=== PATIENT | male | born 1965 | race Caucasian/White ===

== ENCOUNTER 2024-10-25 10:17 | Outpatient (CLI) | payer BC, SELFPAY ==
--- NOTE | 2024-10-25 11:52 | P.ANES_ITS ---
Anesthesia Charges Start Date/Time Anesthesia Start Date: 10/25/24 Anesthesia Start Time: 11:25 Stop Date/Time Anesthesia Stop Date: 10/25/24 Anesthesia Stop Time: 11:49 Coding CPT Codes CPT Codes: PEDRO LWR INTST SCR COLSC - [id number] ([id number]) P2 - PATIENT W/MILD SYST DISEASE, QK - APPLIER 2-4 CNCRNT ANES PROC, QX - MANAGER MARKET SVC W/ MD MED DIRECTION
--- NOTE | 2024-10-25 11:52 | W.ANESCHARGE ---
Anesthesia Charges Start Date/Time Anesthesia Start Date: 10/25/24 Anesthesia Start Time: 11:25 Stop Date/Time Anesthesia Stop Date: 10/25/24 Anesthesia Stop Time: 11:49 Coding CPT Codes CPT Codes: PEDRO LWR INTST SCR COLSC - [id number] ([id number]) P2 - PATIENT W/MILD SYST DISEASE, QK - IT SPECIALIST 2-4 CNCRNT ANES PROC, QX - COOKING INSTRUCTOR SVC W/ MD MED DIRECTION
--- NOTE | 2024-10-25 12:20 | P.ANES_ITS ---
Anesthesia Charges Start Date/Time Anesthesia Start Date: 10/25/24 Anesthesia Start Time: 11:25 Stop Date/Time Anesthesia Stop Date: 10/25/24 Anesthesia Stop Time: 11:49 Coding CPT Codes CPT Codes: PEDRO LWR INTST SCR COLSC - [id number] ([id number]) P2 - PATIENT W/MILD SYST DISEASE, QK - LITHOGRAPHIC STRIPPER 2-4 CNCRNT ANES PROC, QX - CINEMA OPERATOR SVC W/ MD MED DIRECTION
--- NOTE | 2024-10-25 12:20 | W.ANESCHARGE ---
Anesthesia Charges Start Date/Time Anesthesia Start Date: 10/25/24 Anesthesia Start Time: 11:25 Stop Date/Time Anesthesia Stop Date: 10/25/24 Anesthesia Stop Time: 11:49 Coding CPT Codes CPT Codes: PEDRO LWR INTST SCR COLSC - [id number] ([id number]) P2 - PATIENT W/MILD SYST DISEASE, QK - GIFT WRAPPER 2-4 CNCRNT ANES PROC, QX - STORES LABORER SVC W/ MD MED DIRECTION
== END 2024-10-25 10:18 | disposition home or self-care (01) ==
PROVIDERS: PCP Family Medicine; Visit Provider Internal Medicine Gastroenterology
DX: Z12.11 Encounter for screening for malignant neoplasm of colon (principal); Z86.0101 Personal history of adenomatous and serrated colon polyps
CPT/HCPCS: 00812; 45378; J2704